=== PATIENT | male | born 1975 | race African-American/Black ===

== ENCOUNTER 2025-03-05 14:26 | Emergency (ER) | payer OTHER, SELFPAY ==
[2025-03-05 14:28] VITALS: BP 190/123; PULSE 99; RESP 26; TEMP 36.6; O2SAT 92; BMI 48.5
--- NOTE | 2025-03-05 14:47 | EDS_ITS ---
HPI History of Present Illness Chief Complaint: Shortness of Breath Informant: patient Narrative Narrative: 50-year-old male presenting to the emergency room with cough and shortness of breath. Patient states that for the past 3 days he has had a cough with some sputum production. He has been using Mucinex. He notes a fever up to 104 and notes that he has not taken any thing for it other than Tylenol PM the first day. He notes a slight amount of rhinorrhea and sore throat. He states that he went to urgent care where he was prescribed an inhaler. Patient states he has a history of hypertension. However it does not appear that the patient is taking any medications for hypertension currently. He is unsure of exactly who his doctor is but does state that it is at [facility] primary care. He states he is not a smoker. No rash. No leg swelling. After my initial history and physical nursing comes to me and informs me that he has had a chest x-ray as well as COVID and flu swab at urgent care. I am unable to see the chest x-ray. He reports the COVID and flu swab is being negative. His paperwork states that he was sent to the emergency department by urgent care. I did not receive a phone call from them for exactly why he was being s ent to emergency. [facility] Medical History (Updated 03/05/25 @ 16:[address] Carl Crawford, DO) Hypertension Home Medications ?Medication ?Instructions ?Recorded ?Last Taken ?Type albuterol sulfate 90 mcg/actuation 6.7 g inhalation Q6 H PRN Wheezing 03/05/25 Unknown History aerosol inhaler (Proventil HFA) azithromycin 250 mg tablet See Rx Instructions PO .COM PLEX #6 03/05/25 Unknown Rx (Zithromax Z-Adrian) tabs diphenhydramine 25 2 tab PO QHS PRN sleep 03/0503/02/25 History mg-acetaminophen 500 mg tablet (Tylenol PM Extra Strength) guaifenesin 1,200 mg tablet, 1,200 mg PO BID PRN cough 03/05/25 03/05/25 History extended release 12 hr (Mucinex) lisinopril 1 tab PO DAILY 03/05/25 Unkn own History lisinopril 20 1 tab PO DAILY #30 tabs 02/09 10/02 Unknown Rx mg-hydrochlorothiazide 12.5 mg tablet Allergy/AdvReac Type Severity Reaction Status Date / Time Penicillins Allergy Mild Nausea/Vom/ Verified 03/05/25 14:30 Diarrhea Social History Smoking Status: Never smoker ROS ROS ED Constitutional Constitutional ED: Reports chills, fever(s) and sweats; Denies weight loss Eyes Eyes: Denies change in vision or diplopia ENT ENT ED: Reports rhinorrhea and sore throat; Denies ear pain Cardiovascular Cardiovascular: Denies chest pain, orthopnea, palpitations or racing heartbeat Respiratory/Chest Respiratory/Chest: Reports cough, dyspnea and dyspnea on exertion; Denies orthopnea Gastrointestinal Gastrointestinal: Denies abdominal pain, diarrhea, nausea or vomiting Genitourinary Genitourinary ED: Denies dysuria, hematuria or urinary frequency Musculoskeletal Musculoskeletal: Denies arthralgias or myalgias Integumentary Denies abscess or rash Neurologic Neurologic: Denies headache(s) or weakness Psychiatric Psychiatric: Denies anxiety, depression, suicidal ideation or suicidal thoughts Endocrine Endocrinology: Denies polydipsia, polyphagia or polyuria Allergic/Immunologic Allergic/Immunologic ED: Denies mouth swelling, tongue swelling or urticaria EXAM Physical Exam Const Vital Signs: 03/05/25 14:28 03/05/25 14:58 03/05/25 14:59 Temperature 97.9 F Temperature Source Oral Pulse Rate 99 98 Respiratory Rate 26 H 16 Respiratory Effort Short of Breath Respiratory Depth Normal Respiratory Pattern Normal Blood Pressure 190/123 H Blood Pressure Mean 145 Pulse Ox 92 Oxygen Delivery Method Room Air 03/05/25 15:34 03/05/25 16:04 Temperature 97.6 F L Temperature Source Pulse Rate 99 Respiratory Rate 21 H Respiratory Effort Respiratory Depth Respiratory Pattern Blood Pressure 199/109 H 195/97 H Blood Pressure Mean 139 129 Pulse Ox 100 Oxygen Delivery Method Positive well nourished, well developed and obese General Appearance ED: well developed and NAD Nutritional Appearance: obese HEENT Reports normocephalic, head/scalp atraumatic and moist mucous membranes Eyes PERRL and EOMs intact bilaterally Neck no lymphadenopathy, supple and no JVD Resp normal respiratory effort Auscultation: rhonchi throughout Cardio regular rate, regular rhythm and no murmurs GI normal to inspection, nondistended, normoactive bowel sounds and non-tender Palpation: soft Back/Spine no CVA tenderness and normal ROM Extremity normal to inspection General Extremety ED: Negative for edema General Extremity: Negative for edema Neuro oriented x3 and CN's II-XII intact bilaterally Sensorium / Orientation: alert Motor Exam: strength 5/5 throughout Psych mental status grossly normal Mood & Affect: Negative for depressed or tearful Skin no rashes or lesions noted and no wounds MDM MDM MDM Narrative Medical decision making narrative: Differential diagnosis includes but not limited to pneumonia pleural effusion congestive heart failure bronchitis bronchospasm viral syndrome Patient's white count is normal at 5.1 with 12.5 monocytes the abnormality on the differential suggestive of a viral infection. Creatinine 1.41. I do not really have anything new to compare to. Troponin is 34. He does not have chest pain. His symptoms have been present for 3 days his EKG is sinus does not appear ischemic in nature. In speaking with the patient about staying for a second troponin he does not feel that it is necessarily needed which I feel is a reasonable plan. His BNP is 378. My independent interpretation of his chest x- ray is left lower lobe infiltrate versus atelectasis. Clinically the patient has 100 for fever cough rhonchorous lung sounds and while this is potentially most likely viral in nature I cannot rule out bacterial at this point. I think it is reasonable to write him azithromycin as well. I spent a significant amount of time educating the patient on hypertension and cardiomegaly and the importance of getting his blood pressure under control. Patient is a rather poor historian and I do not believe has been taking his blood pressure medicine. I will be writing for lisinopril HCTZ. He will be given a dose of lisinopril here in the department. I would encourage him to follow-up with his doctor in the next 2 weeks. He already has an inhaler that was written by urgent care. Patient states that he has understanding of this. History & Record Review Discussion w/independent historian: Patient Additional record(s) reviewed:: Prior ED visit and Prior labs Lab Data Attestation: I reviewed the patient's lab results. Labs: Laboratory Results - last 24 hr 03/05/25 14:56 WBC 5.1 RBC 4.36 L Hgb 12.8 L Hct 39.3 L MCV 90.1 MCH 29.4 MCHC 32.6 RDW Std Deviation 40.2 RDW Coeff of Andrea 12.2 Plt Count 234 MPV 10.6 Immature Gran % (Auto) 0.400 Neut % (Auto) 53.1 Lymph % (Auto) 32.6 Robertson % (Auto) 12.5 H Eos % (Auto) 1.0 Baso % (Auto) 0.4 Absolute Neuts (auto) 2.7 Absolute Lymphs (auto) 1.65 Nucleated RBC % 0 Sodium 134 Potassium 3.8 Chloride 97 L Carbon Dioxide 22.9 Anion Gap 14 BUN 15 Creatinine 1.41 H Estim Creat Clear Calc 81.43 Est GFR (MDRD) Non-Af 60 BUN/Creatinine Ratio 10.4 Glucose 107 H Calcium 9.1 Troponin T High Sens 34 H NT pro BNP II 378 Radiography Diagnostic Testing: Clinical Impression(s) from Imaging Studies Chest X-Ray 03/05/25 15:23 IMPRESSION: Left mid lung opacities, possibly atelectasis or infiltrates. Reading Location: [facility] EKG Initial EKG: Attestation: I personally reviewed and interpreted this EKG as follows: Comments: Normal sinus rhythm ventricular rate of 99 bpm. Discharge Plan Triage Chief Complaint: Shortness of Breath Other Complaint: Cough ED Provider: Carl Crawford Dx/Rx/DC Orders Clinical Impression: Hypertension, Pneumonia Instructions: ED High Blood Pressure Hypertension, ED Pneumonia (Adult) Prescriptions: New lisinopril-hydrochlorothiazide 20-12.5 mg tablet 1 tab PO DAILY Qty: 30 0RF azithromycin [Zithromax Z-Adrian] 250 mg tablet See Rx Instructions PO .COMPLEX Qty: 6 0RF Rx Instructions: For 250 mg dose pack: take 500 mg today (day 1), then 250 mg for 4 days (days 2-5) No Action lisinopril 1 tab PO DAILY Patient Comments: PT UNSURE OF STRENGTH, WHEN ASKED WHEN HE LAST TOOK HE SAID IT'S BEEN A MINUTE guaifenesin [Mucinex] 1,200 mg tablet extended release 12hr 1,200 mg PO BID PRN (Reason: cough) diphenhydramine-acetaminophen [Tylenol PM Extra Strength] 25-500 mg tablet 2 tab PO QHS PRN (Reason: sleep) albuterol sulfate [Proventil HFA] 6.7 GM HFA aerosol inhaler 6.7 g inhalation Q6H PRN (Reason: Wheezing) Primary Care Provider: Care Physician,No Primary Referrals: Care Physician,No Primary [Primary Care Provider, Medical] Activity Restrictions/Additional Instructions: Your blood pressure is significantly elevated. If you have not been taking blood pressure medication this is the cause of why you are heart is enlarged. It is strongly encouraged that you could control your blood pressure. I have written for lisinopril which you reportedly had been prescribed in the past. I urged you to follow-up with your primary care doctor and have medication adjust ments to ensure that your blood pressure is controlled. Print Language: Angolan Disposition Disposition: Home, Self Care
--- NOTE | 2025-03-05 14:58 | EKG12_ITS ---
Test Reason : sob Blood Pressure : */* mmHG Vent. 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
[2025-03-05 14:59] VITALS: PULSE 98; RESP 16
[2025-03-05 15:19] LABS: Hematocrit 39.3 % (40-54); Hemoglobin 12.8 g/dL (13.0-16.5); Immature Granulocytes Count 0.020 X10^3/uL (0.0-0.0); Mean Corp Hgb Conc 32.6 g/dL (32-36); Mean Corpuscular Volume 90.1 fL (80-94); Mean Platelet Vol. 10.6 fl (6.2-12.0); NRBC Flagged by Analyzer 0 % (0-5); Platelet Count 234 K/mm3 (150-450); RBC Distribution Width CV 12.2 % (11.6-14.6); RBC Distribution Width SD 40.2 fl (35.1-43.9); Red Blood Count 4.36 M/mm3 (4.6-6.2); White Blood Count 5.1 K/mm3 (4.4-11.0)
--- NOTE | 2025-03-05 15:23 | RAD_ITS ---
PROCEDURE: CHEST 1 VIEW (PORTABLE) 03/05/2025 REASON FOR EXAM: COUGH TECHNIQUE: Frontal view of the chest. COMPARISON: None. FINDINGS: LUNGS AND PLEURA: Hazy and strand-like opacities in the left mid lung. No pleural effusion or pneumothorax. HEART AND MEDIASTINUM: The cardiac silhouette is mildly enlarged. The mediastinal contour is normal. BONES: No acute osseous abnormality. RAD/Chest 1 View (Portable) IMPRESSION: Left mid lung opacities, possibly atelectasis or infiltrates. Reading Location: [id number]
[2025-03-05 15:34] VITALS: BP 199/109
[2025-03-05 15:38] LABS: Anion Gap 14 (5-15); BUN 15 mg/dL (4-19); BUN/Creat Ratio 10.4 RATIO (10-20); Calcium,Total 9.1 mg/dL (7.6-11.0); Carbon Dioxide 22.9 mmol/L (21.0-32.0); Chloride 97 mmol/L (98-108); Estimated Creatinine Clearance 81.43 ml/min (50-250); Glucose 107 mg/dL (70-99); Potassium 3.8 mmol/L (3.3-5.1)
[2025-03-05 15:51] LABS: Pro- Brain NATRIURETIC PEPTIDE 378 pg/mL (<=900); Troponin T High Sensitivity 34 ng/L (<=22)
--- OUTSIDE RECORDS SUMMARY | 2025-03-05 15:56 | XMS RPT_ITS | CCD ---
Author Organization [facility] Care Team Providers Care Manager Port Name Role Phone Kristina Brooks PA-C Primary Care Provider Formerly [facility] ED, [place] Unavailable [phone] Tammy Brooks PA-C Primary Care Provider Unavailable [facility] ED, [place] Unavailable [phone] Haagen DIRECTOR OF TEACHING AND LEARNING.Joleen LEHMAN Unavailable [place] DIRECTOR OF TEACHING AND LEARNING.Petra LEHMAN Unavailable [phone] TAMMY BROOKS Primary Care Unavailable HOMA DANIEL Attending Unavailable Allergies Allergy Classification Reported Allergen(s) Allergy Type Date of Onset Reaction(s) Facility (5 sources) Cat; Translations: [CATS] Allergy to substance 7 Shortness of Breath [facility] Work Phone: (3 sources) Penicillins; Translations: [PENICILLINS] Drug Allergy 3 Other: See Comments [facility] (1 source) Penicillins Drug Allergy 3 Other: See Comments [facility] Medications Current Medications Medication Drug Class(es) Dates Sig (Normalized) Sig (Original) amLODIPine 5 mg oral tablet (5 sources) Dihydropyridine Calcium Channel Camila Start: 10-07-2022 take 1 tablet by mouth once daily amLODIPine (NORVASC) 5 mg tablet Indications: Hypertension, essential Take 1 tablet by mouth once daily. 30 tablet 5 10/07/2022 Active Start: 02-22-2021 End: 10-07-2022 take 1 tablet by mouth once daily amLODIPine (NORVASC) 10 mg tablet Take 1 tablet by mouth once daily. 30 tablet 2 02/22/2021 10/07/2022 Discontinued (Other) Comment on above: Take 1 tablet by tamir th once daily. atorvastatin 40 mg oral tablet (4 sources) HMG-CoA Reductase Inhibitor Start: 023 take 1 tablet by mouth once daily at bedtime for hyperlipidemia atorvastatin (LIPITOR) 40 mg tablet Indications: Mixed hyperlipidemia Take 1 tablet by mouth daily at bedtime. For cholesterol. 90 tablet 1 08/26/2022 Active Start: 06-08-2020 take 1 tablet by tamir th once daily at bedtime for hyperlipidemia atorvastatin (LIPITOR) 40 mg tablet Indications: Mixed hyperlipidemia Take 1 tablet by mouth daily at bedtime. For cholesterol. 90 tablet 1 06/08/2020 Active Comment on above: Take 1 tablet by tamir th daily at bedtime. For cholesterol. cetirizine hydrochloride 10 mg oral tablet (4 sources) Histamine-1 Receptor Antagonist Start: 04-11-19 take 1 tablet by mouth once daily as needed cetirizine (ZYRTEC) 10 mg tablet Indications: Cat allergy, airborne Take 1 tablet by mouth once daily as needed (FOR HIVES). 30 tablet 11 04/11/2019 Active Comment on above: Take 1 tablet by tamir th once daily as needed (FOR HIVES). cholecalciferol 1.25 mg oral capsule (7 sources) Vitamin D Start: 08-30-19 take 1 capsule by mouth every week cholecalciferol, Vitamin D3, (VITAMIN D3) 1,250 mcg (50,000 unit) cap capsule Indications: vitamin D deficiency Take 1 capsule by mouth one time a week. 12 capsule 08/29/2022 Active Start: 10-05-2020 take 1 capsule by mo [facility] once daily Cholecalciferol, Vitamin D3, (D3-2000) 50 mcg (2,000 unit) cap Take 1 capsule by mouth once daily. 90 capsule 3 10/05/2020 Active Comment on above: Take 1 capsule by mo ut once daily. Take 1 capsule by mo [facility] one time a week. desonide 0.5 mg/ml topical cream (4 sources) Corticosteroid Start: 2020 desonide (TRIDESILON) 0.05 % cream Indications: Eczema, unspecified type Apply to affected area twice daily. 15 g 1 06/30/2020 Active Comment on above: Apply to affected ar ea twice daily. diclofenac sodium 0.01 mg/mg topical gel (4 sources) Nonsteroidal Anti-inflammatory Drug Start: 2020 apply 4 g topically four times daily diclofenac (VOLTAREN ARTHRITIS PAIN) 1 % topical gel Apply 4 g to affected area four times daily. 50 g 10/14/2020 Active Comment on above: Apply 4 g to affecte d area four times daily. doxycycline hyclate 100 mg oral capsule (1 source) Tetracycline-class Drug Start: 2024 End: 2024 take 1 capsule by mouth twice daily doxycycline hyclate (VIBRAMYCIN) 100 mg capsule Take 1 capsule by mouth two times a day for 7 days. 14 capsule 11/20/2024 11/27/2024 Active hydroCHLOROthiazide 25 mg / lisinopril 20 mg oral tablet (3 sources) Thiazide Diuretic, Angiotensin Converting Enzyme Inhibitor Start: 2022 End: 2022 take 1 tablet by mouth once daily in the morning lisinopril-hydroC HLOROthiazide (ZESTORETIC) 20-25 mg per tablet Indications: Hypertension, essential Take 1 tablet by mouth every morning. 90 tablet 1 08/26/2022 Active Comment on above: Take 1 tablet by tamir th every morning. Completed/Discontinued Medications Medication Drug Class(es) Dates Sig (Normalized) Sig (Original) lisinopril 20 mg oral tablet (1 source) Angiotensin Converting Enzyme Inhibitor Start: 12-30-2020 take 1 tablet by mouth once daily lisinopril (ZESTRIL, PRINIVIL) 20 mg tablet Take 1 tablet by mouth once daily. Add to lisinopril HCTZ 20-12.5mg 30 tablet 5 12/30/2020 Active Comment on above: Take 1 tablet by tamir th once daily. Add to lisinopril HCTZ 20-12.5mg Problems Active Problems Problem Classification Problem Date Documented Date Episodic/Chronic Chronic kidney disease (5 sources) Chronic kidney disease stage 3; Translations: [Chronic renal insufficiency, stage 3 (moderate) ([facility])] Onset: 11-15-2017 Chronic Disorders of lipid metabolism (1 source) Mixed hyperlipidemia; Translations: [Mixed hyperlipidemia] Chronic Essential hypertension (6 sources) Essential hypertension; Translations: [Essential (primary) hypertension] Onset: 01-09-2017 Chronic Nutritional deficiencies (5 sources) Vitamin D deficiency; Translations: [Vitamin D deficiency, unspecified] Onset: 05-21-2018 Chronic Osteoarthritis (4 sources) Osteoarthritis of left knee joint; Translations: [Unilateral primary osteoarthritis, left knee] Onset: 09-08-2017 09-08-2017 Chronic Other nutritional; endocrine; and metabolic disorders (4 sources) Body mass index 40+ - severely obese; Translations: [Morbid (severe) obesity due to excess calories] Onset: 09-01-2017 09-01-2017 Chronic Other skin disorders (2 sources) Mass of skin; Translations: [Localized swelling, mass and lump, unspecified] 11-20-2024 Episodic Other skin disorders (1 source) Localized swelling, mass and lump, unspecified; Translations: [Localized skin mass, lump, or swelling] Onset: 11-20-2024 Episodic Past or Other Problems Problem Classification Problem Date Documented Da te Episodic/Chronic Other non-traumatic joint disorders (4 sources) Pain in left knee; Translations: [Pain in joint, lower leg] Onset: 09-08-2017 09-08-2017 Episodic Other skin disorders (4 sources) Disorder of keratinization; Translations: [Acanthosis nigricans] Onset: 11-15-2017 11-15-2017 Episodic Other skin disorders (4 sources) Skin tag; Translations: [Other hypertrophic disorders of the skin] Onset: 11-15-2017 11-15-2017 Episodic Results Test Name Value Interpretation Reference Range Jasmin clark ARIANNARandell 11-20-2024 [facility] Office Visit ([facility]) -- LENNY DUGAN ([id number]) 1975 M Date Time Provider Department 11/20/24 3:15 PM HOMA DANIEL During your visit today, we recorded the following information about you: Temperature Pulse Respiration Blood pressure 98.3 degrees 108/minute 17/minute 172/88 Weight 141.3 kg Homa Daniel APRN.TECHNOLOGY MANAGER 11/20/2024 3:35 PM Signed [facility] Subjective Lenny Dugan is a 49 year old male. Patient presents with: Mass: Sore on right side under arm x 2 days HPI Left Axillary Sore: - Onset: Yesterday or the day before. - Location: Under the brest in fold of right side. - Denies previous occurrences in this location; typically experiences similar sores on the right side. - Previous sores have resolved spontaneously without intervention. - No prior use of antibiotics for similar sores. - Allergic to penicillin. Review of Systems Skin: (+) right axillary sore Objective BP 172/88 Pulse 108 Temp 36.8 ?C (98.3 ?F) Resp 17 Wt (!) 141.3 kg (311 lb 8.2 oz) SpO2 94% BMI 50.28 kg/m? Physical Exam General: No acute distress. Skin: Large firm mass under axillary/breast fold, non-indurated, approximately greater than one inch in size. hard to measure due to location not indrated. no drainage no redness. tender to touch. { 1. Localized skin mass, lump, or swelling (R22.9) - Acute lesion under the axillary fold, present for 1-2 days; not indurated but larger than 1 inch. - Start doxycycline BID for 1 week. - Refer to general surgery for evaluation and possible incision and drainage. and Recording using [employer] software for draft documentation of the visit was discussed with the patient/authorized sales representative sales manager; all questions welcomed and answered. Patient/authorized sales representative sales manager agreed to proceed MDM Procedures Allergies As of Date: 11/20/2024 Noted Allergy Reaction CATS 01/09/2017 12 - Shortness of Breath PENICILLINS 09/02/2022 14 - Other: See Comments Comments: Does not feel well when taking Date Reviewed: 11/20/2024 Reviewed by: Robyn Bryan MA - Fully Assessed Reason for Visit: Mass [64] Cmt: Sore on right side under arm x 2 days Primary Visit Diagnosis:Localized skin mass, lump, or swelling [R22.9] Order(s):doxycycline hyclate (VIBRAMYCIN) 100 mg capsuleTake 1 capsule by mouth two times a day for 7 days.Disp: 14 capsuleRfl: 0 CONSULT TO GENERAL SURGERY [9005] Order #: [id number]: 1 FUTURE Prescriptions as of 11/20/2024 - doxycycline hyclate (VIBRAMYCIN) 100 mg capsule Take 1 capsule by mouth two times a day for 7 days. - amLODIPine (NORVASC) 5 mg tablet Take 1 tablet by mouth once daily. - cholecalciferol, Vitamin D3, (VITAMIN D3) 1,250 mcg (50,000 unit) cap capsule Take 1 capsule by mouth one time a week. - lisinopril-hydroCHLOROthia zide (ZESTORETIC) 20-25 mg per tablet Take 1 tablet by mouth every morning. - atorvastatin (LIPITOR) 40 mg tablet Take 1 tablet by mouth daily at bedtime. For cholesterol. - diclofenac (VOLTAREN ARTHRITIS PAIN) 1 % topical gel Apply 4 g to affected area four times daily. - Cholecalciferol, Vitamin D3, (D3-2000) 50 mcg (2,000 unit) cap Take 1 capsule by mouth once daily. - desonide (TRIDESILON) 0.05 % cream Apply to affected area twice daily. - cetirizine (ZYRTEC) 10 mg tablet Take 1 tablet by mouth once daily as needed (FOR HIVES). Problem List As Of Date 11/20/2024 Noted Resolved Hypertension, essential [I10] 01/09/2017 Obesity, Class III, BMI 40-49.9 (morbid obesity*09/01/2017 Left knee pain [M25.562] 09/08/2017 Osteoarthritis of left knee [M17.12] 09/08/2017 Chronic renal insufficiency, stage 3 (moderate)*11/15/2017 Acanthosis [L83] 11/15/2017 Skin tag [L91.8] 11/15/2017 Vitamin D deficiency [E55.9] 05/21/2018 Prescriptions ordered this encounter Disp Refills Start End DOXYCYCLINE HYCLATE 100 MG CAPSULE 14 c* 0 11/20/2024 11/27/2024 Route: PO Sig: Take 1 capsule by mouth two times a day for 7 days. Encounter Status:Closed by HOMA DANIEL on 11/20/24 [facility] 10-14-2020 [facility] HNO ID: [id number] Author: RT Vianney(R) Service: Radiology Author Type: Transformer Assembly Supervisor Type: Allied Health Filed: 10/14/2020 4:44 PM Note Text: Radiology Service Progress Note PATIENT NAME: Lenny Dugan DATE OF SERVICE: October 14, 2020 TIME: 4:44 PM PATIENT IDENTITY VERIFICATION COMPLETED USING TWO (2) IDENTIFIERS: Name and Date of confirmed by patient verbally. FALL SCREENING: Has the patient had 2 falls in the last year or 1 fall with injury or currently using an Ambulatory Assistive Device (Walker, Cane, Wheelchair, Crutches, etc.)? Emergency Room Patient: Screened in ED PATIENT GENDER DATA: Male PATIENT RELEVANT IMPLANT DATA REVIEWED: Not Applicable RADIOLOGY DEPARTMENT: General X-ray: Exam(s) Completed: Lower Extremity X-Ray(s): Knee, AP / LAT Right PERIPHERAL IV DATA: Not applicable SIGNED BY: RT Vianney(R) October 14, 2020 4:44 PM [facility] HNO ID: [id number] Author: RCIH Chu Service: Radiology Author Type: Clinical Transformer Assembly Supervisor Type: Allied Health Filed: 10/14/2020 3:53 PM Note Text: Radiology Service Progress Note PATIENT NAME: Lenny Dugan DATE OF SERVICE: October 14, 2020 TIME: 3:53 PM PATIENT IDENTITY VERIFICATION COMPLETED USING TWO (2) IDENTIFIERS: Name and Date of confirmed by patient verbally. FALL SCREENING: Has the patient had 2 falls in the last year or 1 fall with injury or currently using an Ambulatory Assistive Device (Walker, Cane, Wheelchair, Crutches, etc.)? No PATIENT GENDER DATA: Male PATIENT RELEVANT IMPLANT DATA REVIEWED: Not Applicable RADIOLOGY DEPARTMENT: Ultrasound PERIPHERAL IV DATA: Not applicable SIGNED BY: RICH Chu October 14, 2020 3:53 PM [facility] ED NOTEon 10-14-2020 ED NOTE HNO ID: [id number] Author: Tiffanie Hallman RN Service: ? Author Type: Registered Nurse Type: ED Notes Filed: 10/14/2020 6:22 PM Note Text: Pt was able to standd with his discharge and walk to the vehicle when it pulled up for his transport home [facility] ED NOTE HNO ID: [id number] Author: Tiffanie Hallman RN Service: ? Author Type: Registered Nurse Type: ED Notes Filed: 10/14/2020 6:22 PM Note Text: Pt was discharged home and will follow up with ortho as per instructed His was bedside with the discharge [facility] ED NOTE HNO ID: [id number] Author: Tiffanie Hallman RN Service: ? Author Type: Registered Nurse Type: ED Notes Filed: 10/14/2020 4:13 PM Note Text: is bedside [facility] ED NOTE HNO ID: [id number] Author: Tiffanie Hallman RN Service: ? Author Type: Registered Nurse Type: ED Notes Filed: 10/14/2020 4:13 PM Note Text: Pt is in a position of comfort [facility] ED NOTE HNO ID: [id number] Author: Jennifer Hernandez Service: Nursing Author Type: ? Type: ED Notes Filed: 10/14/2020 2:28 PM Note Text: Pt presents to ED with c/o pain in R leg as well as swelling. Pt reports taking tylenol and using Icy Hot to help pain with no relief. [facility] ED PROV NOTEon 10-14-2020 ED PROV NOTE HNO ID: [id number] Author: Carl Guevara PA-C Service: Emergency Medicine Author Type: Physician Observation Assistant Type: ED Provider Notes Filed: 10/14/2020 5:57 PM Note Text: ED Provider Note Patient Name: Lenny Dugan SERVICE DATE: 10/14/20 History Patient presents with: Leg Pain: right leg- knee area The patient is a 45 year old male with a PMH significant for hypertension, stage III chronic renal insufficiency, obesity, left knee osteoarthritis who presents with the chief complaint of right medial knee pain and swelling x 2 weeks. Patient reports that he injured his right knee while standing at work 2 weeks ago. He tried taking Tylenol and applying icy hot 3 days ago with no relief. He has not taken any medications for his pain today and is declining pain medicine here in the ED. The pain is described as an aching sensation. Severity is moderate. Aggravated when walking on his right leg. Alleviated with rest. He denies recent falls or trauma to his knee. He denies calf pain/swelling, numbness/tingling, weakness, skin color/temperature change, fevers, chills, or any other associated symptoms. The patient states he otherwise feels well and has no other complaints. PAST MEDICAL HISTORY Diagnosis Date - None to low serum cortisol response with adrenocorticotrophic hormone (ACTH) stimulation test History reviewed. No pertinent surgical history. FAMILY HISTORY Problem Relation Age of Onset - Cancer Mother of the brain - Hypertension Father - Diabetes Maternal Grandmother - Diabetes Maternal Grandfather Social History Tobacco Use - Smoking status: Former Smoker - Smokeless tobacco: Never Used - Tobacco comment: smoked for a week in 20s Substance and Sexual Activity - Alcohol use: Yes Comment: occasionally - Drug use: No - Sexual activity: Yes ALLERGIES Allergen Reactions - Cats Shortness of Breath Review of Systems Constitutional: Negative. Respiratory: Negative. Cardiovascular: Negative. Gastrointestinal: Negative. Musculoskeletal: Positive for arthralgias (Right medial knee pain and swelling). Negative for back pain and gait problem. Skin: Negative. Neurological: Negative. All other systems reviewed and are negative. Physical Exam BP 164/101 Pulse 87 Temp (Src) 97.3 (Temporal) Resp 18 Wt 295 lb (133.8kg) SpO2 96% O2 Therapy: Room Air Physical Exam Vitals and nursing note reviewed. Constitutional: General: He is not in acute distress. Appearance: He is well-developed. He is obese. He is not diaphoretic. Comments: Well-appearing sitting comfortably in chair HENT: Head: Normocephalic and atraumatic. Eyes: Conjunctiva/sclera: Conjunctivae normal. Cardiovascular: Rate and Rhythm: Normal rate and regular rhythm. Pulses: Dorsalis pedis pulses are 2+ on the right side. Pulmonary: Effort: Pulmonary effort is normal. Breath sounds: Normal breath sounds. Abdominal: Palpations: Abdomen is soft. Tenderness: There is no abdominal tenderness. Musculoskeletal: General: No deformity or signs of injury. Normal range of motion. Cervical back: Normal range of motion and neck supple. Right upper leg: No tenderness. Right knee: Swelling present. No deformity, erythema or ecchymosis. Normal range of motion. Tenderness present. Right lower leg: No tenderness. No edema. Left lower leg: No tenderness. No edema. Comments: Right Knee: tenderness and mild swelling of the medial knee. Full AROM. Muscle strength +5/5 on flexion and extension. Distal pulses 2+ with brisk capillary refill. SILT throughout. No erythema, bruising, abnormal warmth or other overlying skin changes. No joint laxity. Pain with valgus stress. Skin: General: Skin is warm and dry. Capillary Refill: Capillary refill takes less than 2 seconds. Findings: No bruising, erythema or rash. Neurological: General: No focal deficit present. Mental Status: He is alert and oriented to person, place, and time. Psychiatric: Behavior: Behavior normal. Diagnostic Testing ED Labs Ordered and Reviewed - No data to display XR KNEE INJURY 4V AP/LAT/OBLS RT Final Result IMPRESSION: No acute process is seen. Sea Captain: KRISTIAN Transcribe Date/Time: Oct 14 2020 4:46P Dictated by : SAULO LAUREANO MD This examination was interpreted and the report reviewed and electronically signed by: SAULO LAUREANO MD on Oct 14 2020 4:49PM EST US DVT LOWER RT Final Result IMPRESSION: Negative study for proximal DVT in the right lower extremity. Negative study for calf DVT in the right lower extremity. Negative study for superficial thrombophlebitis in the imaged segments of the right lower extremity. Sea Captain: [facility] Transcribe Date/Time: Oct 14 2020 3:54P Dictated by : FREDERICK GANDARA MD This examination was interpreted and the report reviewed and electronically signed by: FREDERICK GANDARA MD on Oct 14 2020 (more content not included)... Normal [facility] US DVT LOWER RTon 10-14-2020 US DVT LOWER RT * * *Final Report* * * DATE OF EXAM: Oct 14 2020 3:51PM RICHARD 1007 - US DVT LOWER RT / PROCEDURE REASON: Leg swelling * * * * Physician Interpretation * * * * EXAMINATION: RIGHT LOWER EXTREMITY DEEP VENOUS ULTRASOUND WITH DOPPLER IMAGING CLINICAL HISTORY: Medial right knee pain for 2 weeks. TECHNIQUE: Grayscale with compression maneuvers, color Doppler and spectral Doppler at rest and with augmentation of the right distal external iliac, common femoral, femoral and popliteal veins was performed. Color Doppler evaluation of the right peroneal and posterior tibial veins was performed. The right great and small saphenous veins were also imaged in grayscale with compression maneuvers at their insertion to the deep system. The contralateral common femoral vein was imaged for comparison. Images were obtained and stored in a permanent archive. MQ: [id number]_1 Limitations: Large body habitus, difficult evaluation in the groin regions. COMPARISON: None. RESULT: RIGHT LOWER EXTREMITY PROXIMAL DEEP VEINS Distal External Iliac and Common Femoral Veins: Compression: Normal. Doppler: Normal color flow filling and spontaneous flow. Normal response augmentation. Femoral vein: Compression: Normal. Doppler: Normal color flow filling and spontaneous flow. Normal response augmentation. Popliteal vein: Compression: Normal. Doppler: Normal color flow filling and spontaneous flow. Normal response augmentation. CALF DEEP VEINS: Limited grayscale evaluation due to body habitus. Peroneal veins: Normal color flow filling. Posterior tibial veins: Normal color flow filling. Gastrocnemius and Soleal veins: Not imaged. SUPERFICIAL VEINS Great saphenous: Patent and compressible at insertion into common femoral vein; not otherwise assessed. Small Saphenous: Patent and compressible in the proximal calf, not otherwise assessed. LEFT LOWER EXTREMITY (FOR COMPARISON) Common Femoral Vein: Compression: Normal. Doppler: Normal color flow filling and spontaneous respirophasic flow. Normal response to augmentation. IMPRESSION: Negative study for proximal DVT in the right lower extremity. Negative study for calf DVT in the right lower extremity. Negative study for superficial thrombophlebitis in the imaged segments of the right lower extremity. Sea Captain: [facility] Transcribe Date/Time: Oct 14 2020 3:54P Dictated by : FREDERICK GANDARA MD This examination was interpreted and the report reviewed and electronically signed by: FREDERICK GANDARA MD on Oct 14 2020 3:57PM EST [id number] [facility] XR KNEE 4V AP/LAT/OBLS RTon 10-14-2020 XR KNEE 4V AP/LAT/OBLS RT * * *Final Report* * * DATE OF EXAM: Oct 14 2020 4:43PM MDX [id number] - XR KNEE 4V AP/LAT/OBLS RT / PROCEDURE REASON: Bone pain, knee * * * * Physician Interpretation * * * * History: Bone pain FINDINGS: 4 views of the right knee have been obtained. There is no acute fracture or dislocation. There is mild medial femoral tibial joint space narrowing. No significant joint effusion. IMPRESSION: No acute process is seen. Sea Captain: [facility] Transcribe Date/Time: Oct 14 2020 4:46P Dictated by : SAULO LAUREANO MD This examination was interpreted and the report reviewed and electronically signed by: SAULO LAUREANO MD on Oct 14 2020 4:49PM EST [id number] [facility] Vital Signs Date Time Vital Sign Value Performing Clinician Faci judith 11-20-2024 15:21-0400 Body mass index (BMI) [Ratio] 50.28 kg/m2 Homa Daniel APRN.TECHNOLOGY MANAGER Work Phone: [facility] 11-20-2024 15:21-0400 Body temperature 98.29 [degF] Homa Daniel APRN.TECHNOLOGY MANAGER Work Phone: [facility] 11-20-2024 15:21-0400 Body weight 141.3 kg Homa Daniel APRN.TECHNOLOGY MANAGER Work Phone: [facility] 11-20-2024 15:21-0400 Diastolic blood pressure 88 mm[Hg] Homa Daniel APRN.TECHNOLOGY MANAGER Work Phone: [facility] 11-20-2024 15:21-0400 Heart rate 108 /min Homa Daniel APRN.TECHNOLOGY MANAGER Work Phone: [facility] 11-20-2024 15:21-0400 Respiratory rate 17 /min Homa Daniel APRN.TECHNOLOGY MANAGER Work Phone: [facility] 11-20-2024 15:21-0400 SaO2% (BldA) [Mass fraction] 94 % Homa Daniel APRN.TECHNOLOGY MANAGER Work Phone: [facility] 11-20-2024 15:21-0400 Systolic blood pressure 172 mm[Hg] Homa Daniel APRN.TECHNOLOGY MANAGER Work Phone: [facility] 10-07-2022 14:53-0400 Diastolic blood pressure 100 mm[Hg] Joleen Feliz APRN.TECHNOLOGY MANAGER Work Phone: [facility] 10-07-2022 14:53-0400 Systolic blood pressure 150 mm[Hg] Joleen Feliz APRN.TECHNOLOGY MANAGER Work Phone: [facility] 10-07-2022 14:04-0400 Body temperature 98.4 [degF] Joleen Feliz APRN.TECHNOLOGY MANAGER Work Phone: [facility] 10-07-2022 14:04-0400 Body weight 140.62 kg Joleen Feliz APRN.TECHNOLOGY MANAGER Work Phone: [facility] 10-07-2022 14:04-0400 Heart rate 80 /min Joleen Feliz DIRECTOR OF TEACHING AND LEARNING.TECHNOLOGY MANAGER Work Phone: [facility] 10-07-2022 14:04-0400 Respiratory rate 20 /min Joleen Feliz DIRECTOR OF TEACHING AND LEARNING.TECHNOLOGY MANAGER Work Phone: [facility] Encounters Encounter Date Encounter Type Care Provider Facility Start: 11-20-2024 End: 11-20-2024 Patient encounter procedure Homa Daniel DIRECTOR OF TEACHING AND LEARNING.TECHNOLOGY MANAGER Work Phone: [facility] [place] Comment on above: Localized skin mass, lump, or swelling (Primary Dx) Start: 11-20-2024 End: 11-20-2024 ambulatory TAMMY BROOKS Facility:[facility] Start: 12-13-2022 Telephone encounter Carl massey MD Work Phone: General Surgery Comment on above: Unable to reach pt t o schedule [facility] Start: 10-07-2022 End: 10-07-2022 Office outpatient visit 25 minutes Joleen Feliz APRN.TECHNOLOGY MANAGER Work Phone: [facility] [place] Comment on above: Hypertension, essent ial (Primary Dx) Start: 07-29-2022 ambulatory Prosper Espinoza LPN [facility] [place] Comment on above: Population Health Na vigation Outreach Procedures Date Procedure Procedure Detail Performing Clinician Start: 08-26-2022 Lipid 1996 panel - S dieter or Plasma Carl Espinoza MD Work Phone: Plan of Treatment Date Care Activity Detail Author Start: 08-27-2027 Lipid 1996 panel - Serum or Plasma Lipid Screening [facility] Start: 08-27-2027 Lipid panel Lipid Screening [facility] Start: 08-27-2027 LIPID SCREEN LIPID SCREEN [facility] Start: 12-11-2025 LIPID SCREEN LIPID SCREEN [facility] Start: 08-26-2025 DIABETES SCREEN DIABETES SCREEN [facility] Start: 08-26-2025 Diabetes Screening Diabetes Screenin g [facility] Start: 12-09-2024 Influenza vaccination Influenza Vacc ine (#1) [facility] Start: 11-26-2024 End: 11-26-2024 Patient encounter procedure 11/26/2024 2:30 PM EDT Office Visit General Surgery [address] [place] [address] Carl Espinoza MD [address] [place] [address] cyst under right arm General Surgery Comment on above: cyst under right arm Start: 01-03-2024 Pneumococcal Vaccine : 50+ (1 of 1 - PCV) Pneumococcal Vaccine: 50+ (1 of 1 - PCV) [facility] Start: 01-03-2024 Shingrix Vaccine (1 of 2) Shingrix Vaccine (1 of 2) [facility] Start: 12-12-2023 DIABETES SCREEN DIABETES SCREEN [facility] Start: 10-08-2023 ANNUAL PCP TEAM PAINTER AND DECORATOR APPRENTICE ELIZABET DISEASE VISIT ANNUAL PCP TEAM CHRONIC DISEASE VISIT [facility] Start: 08-27-2023 Creatinine measurement Serum Creatin ine [facility] Start: 08-27-2023 SERUM CREATININE SERUM CREATININE Cl [facility] Start: 12-09-2022 Influenza vaccination [facility] Start: 08-02-2022 End: 10-02-2022 25-hydroxyvitamin D3 [Mass/volume] in Serum or Plasma VITAMIN D 25 HYDROXY Lab Routine Vitamin D deficiency Expected: 08/02/2022, Expires: 10/02/2022 [facility] Work Phone: Comment on above: Expected: 08/02/2022 , Expires: 10/02/2022 Start: 08-02-2022 End: 10-02-2022 CBC W Auto Differential panel - Blood CBC + DIFF Lab Routine Chronic renal insufficiency, stage 3 (moderate) (HCC) Hypertension, essential Expected: 08/02/2022, Expires: 10/02/2022 [facility] Work Phone: Comment on above: Expected: 08/02/2022 , Expires: 10/02/2022 Start: 08-02-2022 End: 10-02-2022 Comprehensive metabolic 2000 panel - Serum or Plasma COMP METABOLIC PANEL Lab Routine Chronic renal insufficiency, stage 3 (moderate) (HCC) Hypertension, essential Mixed hyperlipidemia Expected: 08/02/2022, Expires: 10/02/2022 [facility] Work Phone: Comment on above: Expected: 08/02/2022 , Expires: 10/02/2022 Start: 08-02-2022 End: 10-02-2022 Lipid 1996 panel - Serum or Plasma LIPID PANEL BASIC Lab Routine Mixed hyperlipidemia Expected: 08/02/2022, Expires: 10/02/2022 [facility] Work Phone: Comment on above: Expected: 08/02/2022 , Expires: 10/02/2022 Start: 04-10-2022 DEPRESSION ASSESSMENT DEPRESSION ASS ESSMENT [facility] Start: 12-11-2021 SERUM CREATININE SERUM CREATININE Cl [facility] Start: 12-10-2021 ANNUAL PCP TEAM PAINTER AND DECORATOR APPRENTICE ELIZABET DISEASE VISIT ANNUAL PCP TEAM CHRONIC DISEASE VISIT [facility] Start: 05-25-2021 COVID-19 VACCINE (4 - Booster for Pfizer series) COVID-19 VACCINE (4 - Booster for Pfizer series) [facility] Start: 05-25-2021 Covid-19 Vaccine (4 - Pfizer series) Covid-19 Vaccine (4 - Pfizer series) [facility] Start: 2019 COLOGUARD (FIT-DNA) COLOGUARD (FIT-D NA) [facility] Start: 2019 Colonoscopy COLONOSCOPY [facility] Start: 2019 COLORECTAL CANCER SCREENING COLORECTAL CANCER SCREENING [facility] Start: [address] COLONOGRAPHY [facility] Start: 2019 FECAL OCCULT BLOOD FECAL OCCULT BLOO D [facility] Start: 2019 Prostate specific antigen measurement Prostate Cancer Screening Discussion [facility] Start: 2019 Screening for malign ant neoplasm of colon [facility] Start: 2019 SIGMOIDOSCOPY SIGMOIDOSCOPY [facility] Start: 1993 Hepatitis B Vaccine (1 of 3 - 19+ 3-dose series) Hepatitis B Vaccine (1 of 3 - 19+ 3-dose series) [facility] Start: 1993 Urine microalbumin profile [facility] Start: 01-03-1992 Anxiety Screening Anxiety Screening [facility] Start: 01-03-1992 BP CONTROLLED (<130/80) BP CONTROLLE D (<130/80) [facility] Start: 01-03-1992 Depression Screening Depression Scre ening [facility] Start: 1974 HEPATITIS B (1 of 3 - 3-dose series) HEPATITIS B (1 of 3 - 3-dose series) [facility] Start: 1974 Hepatitis B Vaccine (1 of 3 - 3-dose series) Hepatitis B Vaccine (1 of 3 - 3-dose series) [facility] Immunizations Immunization Date Immunization Notes Care Provider Jeffrey champion 03-30-2021 COVID-19 original vaccine, age 12+ yr, monovalent (PFIZER-BIONTZervant - PURPLE TOP) Prosper Espinoza LPN [facility] Work Phone: 12-29-2019 influenza, injectabl e, quadrivalent, contains preservative Prosper Felicianoer SHYAM [facility] 12-29-2019 influenza virus vaccine, unspecified formulation Carl Espinoza MD Work Phone: [facility] 01-12-2019 influenza, injectabl e, quadrivalent, preservative free Prosper Espinoza LPN [facility] 01-12-2019 influenza, seasonal, injectable Prosper Espinoza LPN [facility] 01-06-2018 influenza, injectabl e, quadrivalent, contains preservative Prosper Mowrer SHYAM [facility] 01-09-2017 influenza, injectabl e, quadrivalent, contains preservative Prosper Mowrer SHYAM [facility] Work Phone: Payers Date Payer Category Payer Private Health Insurance [id number] 2022 Unknown MMO MMO [employer] PPO [id number] 2022-Present [phone] [address] [place] [address] PPO [id number] 2019 Private Health Insurance [id number] Social History Date Type Detail Facility Start: 05-02-2017 End: 08-26-2022 Tobacco smoking status NHIS Ex-smoker [facility] Work Phone: History of tobacco use Current smoker [facility] Work Phone: Start: 05-02-2017 End: 08-26-2022 Tobacco use and exposure Smokeless tobacco non-user [facility] Work Phone: Start: 03-30-2021 End: 10-07-2022 Alcohol intake Current drinker of alcohol (finding) [facility] Start: 01-09-2017 End: 08-26-2022 Tobacco Comment smoked for a week in 20s [facility] Start: 01-09-2017 [facility] Start: 1975 Sex Assigned At Not on file C [facility] Start: 09-02-2022 End: 10-07-2022 History of Social function [facility] Start: 09-02-2022 End: 10-07-2022 Tobacco use panel [facility] Start: 03-11-2012 Adult Depression Screening Assessment 0 [facility] Start: 10-07-2020 Sexual orientation Heterosexual (jose juan lua) [facility] Progress note 11-20-2024 Note Date & Type Note Facility 11-20-2024 Note HNO ID: [id number] Author: HOMA DANIEL APRN.TECHNOLOGY MANAGER Service: ? Author Type: Nurse Practitioner Type: Progress Notes Filed: 11/20/2024 15:35 Note Text: [facility] [place] Tiffany Dugan is a 49 year old male. Patient presents with: Mass: Sore on right side under arm x 2 days HPI Left Axillary Sore: - Onset: Yesterday or the day before. - Location: Under the brest in fold of right side. - Denies previous occurrences in this location; typically experiences similar sores on the right side. - Previous sores have resolved spontaneously without intervention. - No prior use of antibiotics for similar sores. - Allergic to penicillin. Review of Systems Skin: (+) right axillary sore Objective BP 172/88 Pulse 108 Temp 36.8 ?C (98.3 ?F) Resp 17 Wt (!) 141.3 kg (311 lb 8.2 oz) SpO2 94% BMI 50.28 kg/m? Physical Exam General: No acute distress. Skin: Large firm mass under axillary/breast fold, non-indurated, approximately greater than one inch in size. hard to measure due to location not indrated. no drainage no redness. tender to touch. { 1. Localized skin mass, lump, or swelling (R22.9) - Acute lesion under the axillary fold, present for 1-2 days; not indurated but larger than 1 inch. - Start doxycycline BID for 1 week. - Refer to general surgery for evaluation and possible incision and drainage. and Recording using ambient AI software for draft documentation of the visit was discussed with the patient/authorized sales representative sales manager; all questions welcomed and answered. Patient/authorized sales representative sales manager agreed to proceed MDM Procedures [facility] History of Present illness Narrative 11-20-2024 Homa Daniel APRN.TECHNOLOGY MANAGER - 11/20/2024 3:33 PM EDT Note Date & Type Note Facility 11-20-2024 History of Presen t illness Narrative [facility] Subjective Lenny Dugan is a 49 year old male. Patient presents with: Mass: Sore on right side under arm x 2 days HPI Left Axillary Sore: - Onset: Yesterday or the day before. - Location: Under the brest in fold of right side. - Denies previous occurrences in this location; typically experiences similar sores on the right side. - Previous sores have resolved spontaneously without intervention. - No prior use of antibiotics for similar sores. - Allergic to penicillin. Review of Systems Skin: (+) right axillary sore Objective BP 172/88 Pulse 108 Temp 36.8 C (98.3 F) Resp 17 Wt (!) 141.3 kg (311 lb 8.2 oz) SpO2 94% BMI 50.28 kg/m Physical Exam General: No acute distress. Skin: Large firm mass under axillary/breast fold, non-indurated, approximately greater than one inch in size. hard to measure due to location not indrated. no drainage no redness. tender to touch. { 1. Localized skin mass, lump, or swelling (R22.9) - Acute lesion under the axillary fold, present for 1-2 days; not indurated but larger than 1 inch. - Start doxycycline BID for 1 week. - Refer to general surgery for evaluation and possible incision and drainage. and Recording using ambient AI software for draft documentation of the visit was discussed with the patient/authorized sales representative sales manager; all questions welcomed and answered. Patient/authorized sales representative sales manager agreed to proceed MDM Procedures documented in this encounter [facility] Note 12-17-2022 Telephone Encounter - Prosper Felton - 12/17/2022 9:08 AM EDTTelephone Encounter - Catherine Lees - 12/13/2022 12:35 PM EDT Note Date & Type Note Facility 12-17-2022 Miscellaneous Notes Formattin g of this note might be different from the original. Connected with patient and stated he would like to cancel procedure all together, please advise. Thank you. [facility] calling to inform office that they have been unable to reach patient to schedule the [facility] appt. Asking the our office keep trying and if reached, have him call [phone] to schedule. Sent to operating room scheduler and also sent Cloud[employer] message to patient to have him contact [facility] directly. Catherine Lees MA documented in this encounter [facility] Instructions 10-07-2022 Patient Instructions Note Date & Type Note Facility 10-07-2022 Instructions Joleen Feliz APRN.CNP - 10/07/2022 2:45 PM EDT Continue the same medication. Start the amlodipine. 3. Recheck in a month. documented in this encounter [facility] History of Present illness Narrative 10-07-2022 Joleen Feliz APRN.CNP - 10/07/2022 2:31 PM EDT Note Date & Type Note Facility 10-07-2022 History of Presen t illness Narrative This is a 47 year old male who presents today with: Patient presents with: Follow Up: 1 month HISTORY OF PRESENT ILLNESS: Lenny Dugan is a 47 year old male. Patient presents with: Follow Up: 1 month Pt presents today for 1 month recheck. At last visit, we restarted lisinopril/HCTZ. Had been off of medication for about 8 months prior to resuming. Has noticed a cough, but tolerable. No CP, palpitations, SOB. No swelling. PAST MEDICAL HISTORY: PAST MEDICAL HISTORY Diagnosis Date Essential hypertension Hyperlipemia None to low serum cortisol response with adrenocorticotrophic hormone (ACTH) stimulation test No past surgical history on file. ALLERGIES Cats and Penicillins MEDICATIONS Current Outpatient Medications Medication Sig cholecalciferol, Vitamin D3, (VITAMIN D3) 1,250 mcg (50,000 unit) cap capsule Take 1 capsule by mouth one time a week. lisinopril-hydroCHLOROthiazide (ZESTORETIC) 20-25 mg per tablet Take 1 tablet by mouth every morning. atorvastatin (LIPITOR) 40 mg tablet Take 1 tablet by mouth daily at bedtime. For cholesterol. amLODIPine (NORVASC) 10 mg tablet Take 1 tablet by mouth once daily. diclofenac (VOLTAREN ARTHRITIS PAIN) 1 % topical gel Apply 4 g to affected area four times daily. Cholecalciferol, Vitamin D3, (D3-2000) 50 mcg (2,000 unit) cap Take 1 capsule by mouth once daily. desonide (TRIDESILON) 0.05 % cream Apply to affected area twice daily. cetirizine (ZYRTEC) 10 mg tablet Take 1 tablet by mouth once daily as needed (FOR HIVES). No current facility-administered medications for this visit. FAMILY HISTORY Problem Relation Age of Onset Cancer Mother of the brain Hypertension Father Diabetes Maternal Grandmother Diabetes Maternal Grandfather Social History Tobacco Use Smoking status: Former Smokeless tobacco: Never Tobacco comments: smoked for a week in 20s Vaping Use Vaping Use: Never used Substance Use Topics Alcohol use: Yes Comment: occasionally Drug use: No EXAM: BP 156/90 Pulse 80 Temp 36.9 C (98.4 F) (Right Tympanic) Resp 20 Wt (!) 140.6 kg (310 lb) BMI 50.04 kg/m PHYSICAL EXAM: General Appearance: Well appearing, alert, in no acute distress, well-hydrated, well nourished.. Skin: Skin color, texture, turgor normal, no suspicious rashes or lesions. Head: Normocephalic, no masses, lesions, tenderness or abnormalities. Eyes: Anicteric sclera. Extraocular movements are intact. . Lungs: Lungs clear to auscultation. No wheezing, rhonchi, rales.. Heart: RRR without murmur, gallop, or rubs. No ectopy. Neurologic: Gait normal. ASSESSMENT/PLAN: 1. Hypertension, essential - ICD9: 401.9, ICD10: I10 - Uncontrolled - Recommend home blood pressure monitoring, to bring results to next visit - Encouraged sodium restriction, DASH or Mediterranean diet - Recommend regular aerobic exercise - restart amlodipine. Has noticed a cough, but tolerable. Would like to continue the lisinopril/HCTZ for now. - AMLODIPINE 5 MG TABLET Recheck in a month. Discussed treatment plan and patient voices understanding. Patient's questions answered appropriately. Medications and potential side effects were discussed and patient voices understanding. Return to the office as scheduled or as needed for worsening/no improvement. Joleen Feliz APRN.TECHNOLOGY MANAGER documented in this encounter [facility] History of Present illness Narrative 08-17-2022 Prosper Felton - 08/17/2022 2:01 PM Noam Frankel - 08/10/2022 4:44 PM EDTJoyce Laughlin - 08/06/2022 1:21 PM EDTProsper Espinoza LACEMAKER - 08/03/2022 2:58 PM EDTJaenzo Zurita LPN - 08/02/2022 3:19 PM EDT Note Date & Type Note Facility 08-17-2022 History of Presen t illness Narrative Patient scheduled. 2nd Attempt- Called LVM for pt to call back and schedule labs and physical with PCP Called pt and left vm to call us back at his earliest convenience. Informed him that would like him scheduled for a physical and that he has blood work to be drawn prior. 1st attempt Joyce PSS Please assist pt with scheduling 4c Est Well visit. Labs to be completed prior to appt. Prosper Espinoza LPN Left message to return call. Needs to schedule an appointment. Labs ordered to have done prior to appointment. Patient Outreach on 07/29/22 COMP METABOLIC PANEL CBC + DIFF LIPID PANEL BASIC VITAMIN D 25 HYDROXY Please schedule as physical. Thanks, Ezra Brooks PA-C POPULATION HEALTH NAVIGATION OUTREACH Action/FYI Pt overdue for appt and labs. CORY 12/10/20. Labs pending. Phoned pt, left message to return call to office. Patient Identified by Name and : NO Outreach Outcome/Action Unable to reach patient: Left message Did you use a PCP flex slot to schedule this appointment? N/A Reason for Outreach Care Gap or Scheduling/Wellness visits Payer: Payor: AETNA / Plan: AETNA OPEN ACCESS AETNA SELECT / Product Type: EPO / Care Gap Reviewed:: N/A Reminder: Reminder note to check Health Maintenance for items below Health Maintenance items due: HEPATITIS B(1 of 3 - 3-dose series) Never done BP CONTROLLED (<130/80) Never done DTAP,TDAP,TD(1 - Tdap) Never done COLORECTAL CANCER SCREENING Never done COVID-19 VACCINE(4 - Booster for Pfizer series) due on 05/25/2021 ANNUAL PCP TEAM CHRONIC DISEASE VISIT due on 12/10/2021 SERUM CREATININE due on 12/11/2021 DEPRESSION ASSESSMENT Never done Navigation Signature: Prosper Espinoza LPN July 29, 2022 4:32 PM documented in this encounter [facility] Evaluation note Note Date & Type Note Facility Evaluation note Diagnosis Chronic renal insufficiency, stage 3 (moderate) (HCC)- Primary Hypertension, essential Unspecified essential hypertension Vitamin D deficiency Unspecified vitamin D deficiency Mixed hyperlipidemia documented in this encounter [facility] Evaluation note Note Date & Type Note Facility Evaluation note Diagnosis Hypertension, essential- Primary Unspecified essential hypertension documented in this encounter [facility] Evaluation note Note Date & Type Note Facility Evaluation note Diagnosis Localized skin mass, lump, or swelling- Primary Localized superficial swelling, mass, or lump documented in this encounter [facility] Summary Purpose Family History No Family History Records FoundNo Family History Records Found Advance Directives No Advanced Directives Records FoundNo Advanced Directives Records Found Additional Source Comments (unrecognized sect ion and content) No Status Records FoundNo Status Records Found INFORMATION SOURCE (unrecogn ized section and content) DATE CREATED AUTHOR 10/15/2020 [facility] DATE CREATED AUTHOR AUTHOR'S ORGANIZ ATION 11/22/2024 [facility] Source Comments (unrecognize d section and content) In the event this informatio n is protected by the Federal Confidentiality of Alcohol and Drug Abuse Patient Records regulations: The Federal rules restrict any use of the information to criminally investigate or prosecute any alcohol or drug abuse patient.[facility] the event this information is protected by the Federal Confidentiality of Alcohol and Drug Abuse Patient Records regulations: The Federal rules restrict any use of the information to criminally investigate or prosecute any alcohol or drug abuse patient.[facility] the event this information is protected by the Federal Confidentiality of Alcohol and Drug Abuse Patient Records regulations: The Federal rules restrict any use of the information to criminally investigate or prosecute any alcohol or drug abuse patient.[facility] the event this information is protected by the Federal Confidentiality of Alcohol and Drug Abuse Patient Records regulations: The Federal rules restrict any use of the information to criminally investigate or prosecute any alcohol or drug abuse patient.[facility] Reason for Visit (unrecogniz ed section and content) Reason Onset Date Comments Population Health Navigation Outreach 07/29/2022 Reason Comments Follow Up 1 month Reason Comments Unable to reach pt to schedule [facility] Reason Comments Mass Sore on right side u nder arm x 2 days Care Teams (unrecognized sec tion and content) Manager Port Relationship Specialty Start Date End Date Kristina Brooks PA-C [address] [place], [place] [id number] PCP - General Family Medicine 01/09/17 [facility] [address] [place], [place] [id number] Health Sales And In Home Delivery Specialist Education Services 09/15/19 Manager Port Relationship Specialty Start Date End Date Kristina Brooks PA-C [address] [place], [place] [phone] PCP - General Family Medicine 01/09/17 [facility] [address] [place] [address] Health Sales And In Home Delivery Specialist Education Services 09/15/19 Manager Port Relationship Specialty Start Date End Date Kristina Brooks PA-C [address] [place] [address] PCP - General Family Medicine 01/09/17 [facility] [address] [place], [place] [id number] Health Sales And In Home Delivery Specialist Education Services 09/15/19 Manager Port Relationship Specialty Start Date End Date Tammy Brooks PA-C PCP - General Family Medicine 01/09/17 [facility] [address] [place], [place] [id number] Health Sales And In Home Delivery Specialist Education Services 09/15/19 Joleen Feliz APRN.TECHNOLOGY MANAGER [address] [place], [place] [phone] [facility] 03/15/24 Petra Rucker, DIRECTOR OF TEACHING AND LEARNING.TECHNOLOGY MANAGER [address] [place], [place] [address] [facility] 03/15/24 FOR RECORDS PERTAINING TO PATIENTS WHO ARE OR HAVE BEEN ENROLLED IN A CHEMICAL DEPENDENCY/SUBSTANCEABUSE PROGRAM, SOME INFORMATION MAY BE OMITTED. This clinical summary was aggregated from multiple sources. Caution should be exercised in using it in the provision of clinical care. This summary normalizes information from multiple sources, and as a consequence, information in this document may materially change the coding, format and clinical context of patient data. In addition, data may be omitted in some cases. CLINICAL DECISIONS SHOULD BE BASED ON THE PRIMARY CLINICAL RECORDS. [facility] [employer] provides no warranty or guarantee of the accuracy or completeness of information in this document.
[2025-03-05 16:04] VITALS: BP 195/97; PULSE 99; RESP 21; TEMP 36.4; O2SAT 100
== END 2025-03-05 16:17 | disposition home or self-care (01) ==
PROVIDERS: Emergency Provider Emergency Medicine; Visit Provider Emergency Medicine
DX: R06.02 Shortness of breath (principal); J18.9 Pneumonia, unspecified organism; I10 Essential (primary) hypertension
CPT/HCPCS: 71045; 80048; 83880; 84484; 85025; 93005; 94640; 99283; A4216